=== PATIENT | male | born 1980 | race Caucasian/White ===

== ENCOUNTER → 2016-11-13 | Outpatient (REF) ==
--- NOTE | 2016-11-13 16:15 | REP ---
Thoracic spine three views: Vertebral body heights and alignment are normal. There is mild disc space narrowing throughout the thoracic spine compatible with multilevel degenerative disc disease. There are no compression deformities or listhesis. The pedicles are unremarkable. Impression: Multilevel degenerative disc disease, otherwise negative thoracic spine. Signed by Bryan Valdivia MD 11/13/2016 04:06 P
--- NOTE | 2016-11-13 16:32 | REP ---
LUMBOSACRAL SPINE: AP and lateral views of the lumbosacral spine are performed with three total views obtained. There is no compression fracture or malalignment with normal lumbar lordosis. There is tiny spurring at L4 and L5. There is slight disc space narrowing at L4-L5 and L5-S1 with subchondral sclerosis. Posterior elements are intact. IMPRESSION: Mild degenerative changes as above. Signed by Bryan López MD 11/13/2016 05:14 P
== END ==
LOC: M SMT 14:34
PROVIDERS: ATTEND Internal Medicine
DX: Z02.9 Encounter for administrative examinations, unspecified (principal)

== ENCOUNTER → 2021-08-21 | Outpatient (REF) | LOC: M PLALAB 16:00 | PROVIDERS: ATTEND Internal Medicine | DX: M54.2 Cervicalgia (principal) ==